=== PATIENT | female | born 1945 | race Caucasian/White ===

== ENCOUNTER 2018-03-31 08:46 | Outpatient (CLI) | payer MEDICARE, OTHER ==
[~2018-03-31] VITALS: Ht 167.6 cm; Wt 55.9 kg
--- NOTE | ~2018-03-31 | EC ---
PATIENT:BASILIA RICCI DATE OF SERVICE: 03/31/18 SEX: F MEDICAL RECORD: [id number] DATE OF : 41 LOCATION:[facility] AGE OF PATIENT: 72 ADMISSION DATE: 03/31/18 REFERRING PHYSICIAN: INTERPRETING PHYSICIAN: CHANELL WOOD MD ECHOCARDIOGRAM REPORT ECHO CHARGES 4 ECHO COMPLETE Date: 03/31 CLINICAL DIAGNOSIS: CHEST PAIN,ANGINA ECHOCARDIOGRAPHIC MEASUREMENTS (adult normal given) AC root (d.<3.7cm) 3.3 cm LV Septum d (<1.2 cm> 1.1 cm Valve Excursion 1.4 cm LV Septum (systole) 1.3 cm Left Atria (s.<4.0cm> 2.9 cm LVPW d(<1.2cm) 1.1 cm RV (d.<2.3cm) 4.8 cm LVPW (sytole) 1.2 cm LV diastole(<5.6CM) 5.0 cm MV E-F(>70mm/sec) cm LV systole 3.5 cm LVOT Diameter 1.8 cm MV exc.(>10mm) 1.9 cm Est.ejection fraction (50-75%) % DOPPLER: LVIT cm/sec A 70.0 cm/sec E 58.0 cm/sec LA cm/sec RVSP 37 mmHg LVOT 87 cm/sec AOP1/2T 907 m/s Asc. Ao 119 cm/sec RVOT 81 cm/sec RA cm/sec PA 86 cm/sec AV Gradient Peak 5.65 mmHg AV Mean 3.01 mmHg AV Area 2.2 cm MV Gradient Peak 3.29 mmHg MV Mean 0.91 mmHg MV Area cm COMMENTS: Reel Stripper: 2 KENAN DOLAN Olive Knocker: 4 Dr. Wood TAPE# pacs Pericardial Effusion N DATE OF SERVICE: PROCEDURE: Transthoracic echocardiogram. FINDINGS: 1. The echocardiogram is of a difficult one to visualize endocardial structures, but overall the left ventricular ejection fraction is normal at 60%. The inflow characteristics are consistent with diastolic dysfunction and there is a suggestion of at least mild concentric left ventricular hypertrophy. 2. The aortic valve is normal. ECHOCARDIOGRAM REPORT [id number] BASILIA RICCI 3. The mitral valve has [id number] mitral regurgitation, eccentric in nature. 4. The tricuspid valve has mild tricuspid regurgitation. RVSP is 37 mmHg. 5. The right ventricle is mildly dilated. 6. The right atrium is mildly dilated. CONCLUSIONS: The patient has normal LV systolic function with evidence of diastolic dysfunction and hypertensive heart disease. TRANSINT:[id number] Voice Confirmation ID: [id number] DOCUMENT ID: [id number] CHANELL WOOD MD at 0841 CC: [id number] DICTATION DATE: 04/05/18 0828 PETROL TANKER DRIVER: 04/05/18 1032 DEP CLI 03/31/18 [id number] [place] [address]
--- NOTE | ~2018-03-31 | HEMODYNAMI ---
PATIENT:BASILIA RICCI MEDICAL RECORD: [id number] : 41 LOCATION:[facility] ADMISSION DATE: 03/31/18 Generatedon:03/31/201811:31 Patient name: BASILIA RICCI Patient #: [id number] SSN: : 1945 Date of study: 03/31/2018 Page: Of Hemodynamic Procedure Report Patient Data Patient Demographics Procedure consent was obtained First Name: BASILIA Gender: Female Last Name: RADHAMES : 1945 Patient #: [id number] Age: 72 year(s) Race: Unknown Additional ID: [id number] Contact details [address]: [address] [place] [address] State: [place] City: [place] Zip code: [address] Past Medical History Allergies Allergen Reaction Date Comments Reported Other allergy 03/31/2018 Codeine Admission Admission Data Admission Date: 03/31/2018 Admission Time: 8:46 Admit Source: Other Procedure Procedure Types Cath Procedure Diagnostic Procedure LHC LHC w/Coronaries Procedure Description Procedure Date Procedure Date: 03/31/2018 Procedure Start Time: 11:18 Procedure End Time: 11:29 Procedure Staff Name Function Venkata Krishna MD Performing Physician Idalmis Draper RT Monitor Jamie Hood RT Scrub Derrell Viveros RN Nurse Procedure Data Cath Procedure Fluoroscopy Diagnostic fluoroscopy Total fluoroscopy Time: 1.5 time: 1.5 min min Diagnostic fluoroscopy Total fluoroscopy dose: 184 dose: 184 mGy mGy Contrast Material Contrast Material Type Amount (ml) Isovue 300 45 Entry Location Entry Primary Successful Side Size Upsize Upsize Entry Closure Succes sful Closure Location (Fr) 1 (Fr) 2 (Fr) Remarks Device Remarks Radial Right 6 Fr Exoseal TR artery Short Estimated blood loss: 10 ml Diagnostic catheters Device Type Used For End Catheter Placement DIAGNOSTIC Lorimor 110cm 5 Procedure Fr catheter ([id number]) Procedure Complications No complications Procedure Medications Medication Administration Route Dosage Oxygen etCO2 Nasal cannula 3 l/min Lidocaine 2% added to field 20 Heparin Flush Bag added to field 2 bags (1000units/500ml NS) 0.9% NaCl I.V. 100 ml/hr Radial Cocktail I.A. 1 syringe (Verapomil 2mg/Nitro 400mcg/Heparin 1500units) Versed I.V. 0.5 mg Fentanyl I.V. 25 mcg Hemodynamics Rest Heart Rate: 54 (bpm) Pressure Samples Time Site Value (mmHg) Purpose Heart Use Rate(bpm) 11:22 LV 182/9,20 EDP 58 Gradients Valve Time Site Site Mean SEP/DFP Peak To Heart Use 1 2 (mmHg) (sec/min) Peak Rate (mmHg) (bpm) Aortic 11:23 LV AO 69 Snapshots Pre Cath Intra NCS Post Cath Vital Signs Time Heart Resp SPO2 etCO2 NIBP (mmHg) Rhythm Pain Sedation Rate (ipm) (%) (mmHg) Status Level (bpm) 10:59:50 58 23 100 0 125/104(116) NSR 0 (11) 10(A) , No pain 11:04:49 55 29 99 0 199/85(115) NSR 0 (11) 10(A) , No pain 11:09:17 55 24 99 0 191/87(111) NSR 0 (11) 10(A) , No pain 11:13:43 56 22 94 0 166/84(109) NSR 0 (11) 10(A) , No pain 11:18:03 55 23 93 0 173/76(102) NSR 0 (11) 9(A) , No pain 11:22:26 56 20 96 0 190/77(152) NSR 0 (11) 9(A) , No pain 11:26:56 57 18 93 0 159/73(104) NSR 0 (11) 10(A) , No pain Medications Time Medication Route Dose Verified Delivered Reason Notes Effectiveness by by 10:58:46 Oxygen etCO2 3 l/min Venkata Buffie used for Nasal Erendira Viveros RN procedure cannula 11:06:47 Lidocaine 2% added 20ml Venkata Venkata for local to vial Erendira Krishna MD anesthetic field 11:06:52 Heparin Flush added 2 bags Venkata Venkata used for Bag to Erendira Krishna MD procedure (1000units/500ml field VASQUEZ NS) 11:07:01 0.9% NaCl I.V. 100 Venkata Buffie Per ml/hr Erendira mcclendon MD 11:09:54 Radial Cocktail I.A. 1 Venkata Venkata for (Verapomil syringe Erendira Krishna MD vasodilation 2mg/Nitro MD 400mcg/Heparin 1500units) 11:16:03 Versed I.V. 0.5 mg Venkata Buffie for sedation Erendira Viveros RN, MD 11:16:09 Fentanyl I.V. 25 mcg Venkata Dove for sedation Erendira Viveros RN, MD Procedure Log Time Note 10:28:02 Informed consent obtained and on chart 10:28:06 Admit Source: Other 10::20 Diagnostic Cath status Elective 10::20 Time tracking: Regular hours (M-F 7:00 - 5:00) 10:28:23 Plan of Care:Hemodynamics will remain stable., Cardiac rhythm will remain stable., Comfort level will be maintained., Respiratory function will remain adequate., Patient/ family verbilizes understanding of procedure., Procedure tolerated without complication., Recovers from procedure without complications.. 10:44:20 Derrell Viveros RN sent for patient. Start room use. 10:51:12 Patient received from Pre/Post Procedure Room to CCL 2 Alert and oriented. Tansferred to table in Supine position. 10:51:14 Warm blankets applied, and pawan hugger turned on for patient comfort. 10:51:14 Correct patient and procedure confirmed by team. 10:51:15 ECG and BP/O2 sat monitors applied to patient. 10:56:59 H&P Date Dictated: 03/28/2018 Within 30 days and on chart., H&P Addendum completed by physician on day of procedure. (MUST COMPLETE FOR ALL OUTPATIENTS). 10:57:01 Pre-procedure instructions explained to patient. 10:57:03 Family in waiting room. 10:57:06 Patient NPO since Midnight. 10:57:28 Patient allergic to Other allergyCodeine 10:57:32 Is the patient allergic to Iodine/contrast media? No. 10:57:53 Vital chart was started 10:57:56 Baseline sample Acquired. 10:57:58 Baseline sample Acquired. 10:58:05 Rhythm: sinus rhythm 10:58:06 Full Disclosure recording started 10:58:14 Snore? Yes 10:58:20 Sleep apnea? No 10:58:26 Airway obstruction? Yes COPD 10:58:43 Is patient on blood thinner?Yes 10:58:46 Oxygen 3 l/min etCO2 Nasal cannula was administered by Derrell Viveros RN; used for procedure; 10:58:47 ACC The patient was administered the following blood thiners within the last 24 hours: ACCPlavix 10:58:49 Patient diabetic? No. 10:58:54 Patient pain scale 0/10 ?. 10:59:02 IV patent on arrival in left forearm with 0.9% NaCl at [facility]. 10:59:56 Right Radial & Right Groin area was prepped with chlora-prep and draped in sterile fashion 10:59:58 Alarms reviewed by R. N. 10:59:59 Sharps counted by scrub and verified by R.N. 11:06:47 Lidocaine 2% 20ml vial added to field was administered by Venkata Krishna MD; for local anesthetic; 11:06:52 Heparin Flush Bag (1000units/500ml NS) 2 bags added to field was administered by Venkata Krishna MD; used for procedure; 11:07:01 0.9% NaCl 100 ml/hr I.V. was administered by Derrell Viveros RN; Per physician; 11:09:54 Radial Cocktail (Verapomil 2mg/Nitro 400mcg/Heparin 1500units) 1 syringe I.A. was administered by Venkata Krishna MD; for vasodilation; 11:10:37 Physician paged 11:15:07 Physician arrived 11:15:08 --------ALL STOP TIME OUT------ 11:16:03 Versed 0.5 mg I.V. was administered by Derrell Viveros RN; for sedation; 11:16:09 Fentanyl 25 mcg I.V. was administered by Derrell Viveros RN; for sedation; 11:17:43 Final Timeout: patient, procedure, and site verified with staff and physician. All members of the team are in agreement. 11:17:45 Right Radial & Right Groin site verified by team. 11:17:49 Physical assessment completed. ASA score P 2 - A patient with mild systemic disease as per Venkata Krishna MD. 11:17:53 Sedation plan: IV Moderate Sedation Medication:Versed, Fentanyl 11:18:00 Use device set Radial Dx or PCI 11:18:08 Procedure started. 11:18:24 Local anesthetic to right radial artery with Lidocaine 2% by Venkata Krishna MD.INITIAL ACCESS ONLY 11:18:29 ACIST Syringe (37558) opened to sterile field. 11:18:30 Medline Cath Pack ([id number]) opened to sterile field. 11:18:32 Bag Decanter (2002) opened to sterile field. 11:18:33 DIAGNOSTIC WIRE .035 260cm J wire (439232) opened to sterile field. 11:18:33 ACIST Hand Control (36407) opened to sterile field. 11:18:34 ACIST Manifold (43377) opened to sterile field. 11:18:37 MBrace Wrist Support ([id number]) opened to sterile field. 11:18:39 NEEDLE Cook 21G 4cm Radial (A02492) opened to sterile field. 11:18:43 SHEATH 6Fr Prelude Radial ([id number]) opened to sterile field. 11:21:08 A 6 Fr Short sheath was inserted into the Right Radial artery 11:21:59 A DIAGNOSTIC Lorimor 110cm 5 Fr catheter ([id number]) was advanced over the wire and used for Procedure. 11:22:28 LV gram done using JOHNSON 11:23:51 RCA angiography performed. 11:24:15 LCA angiography performed. 11:25:41 Catheter removed. 11:26:02 Sheath removed intact; hemostasis achieved with Exoseal to the Right Radial artery. 11:26:49 EF : 65 % 11:26:51 LV hemodynamics recorded. 11:26:56 Procedure ended.(Physican Out) 11:27:07 Fluoroscopy time 01.50 minutes. 11:27:12 Fluoroscopy dose: 184 mGy 11:27:12 Flurop Dose total: 184 11:27:15 Contrast amount:Isovue 300 45ml. 11:27:17 Sharps counted by scrub and verified by R.N. 11:27:20 TR band inflated with 12cc of air. 11:27:22 Insertion/operative site no bleeding no hematoma. 11:27:24 Post Procedure Pulses reassessed and unchanged 11:28:31 Post-procedure physical assessment completed. ASA score P 2 - A patient with mild systemic disease as per Venkata Krishna MD. 11:28:35 Post procedure rhythm: sinus rhythm 11::38 Estimated blood loss: 10 ml 11:28:40 Post procedure instruction explained to patient.Patient verbalizes understanding. 11:28:58 Procedure and supply charges have been captured, reviewed, submitted and are correct. 11:29:21 Procedure Complication : No complications 11:29:25 Vital chart was stopped 11:29:25 See physician's report for complete and final results. 11:29:27 Report given to Pre/Post Procedure Room. 11:29:31 Patient transfered to Pre/Post Procedure Room with Stretcher. 11:29:34 Procedure ended. 11:29:34 Full Disclosure recording stopped 11:29:37 End room use (Document Last) Device Usage Item Name Manufacture Quantity Catalog Number Hospital Part Current M inimal Lot# / Charge Number Stock Stock Serial# Code ACIST Syringe Acist 1 28812 [id number] [id number] 483192 2 0 (70699) Medical [employer] Medline Cath Cardinal 1 [id number] 683879 31749 942568 5 [facility] ([id number]) Bag Decanter Microtek 1 626293 96002 824767 5 () Medical Inc. DIAGNOSTIC WIRE [facility] 1 992558 791351 434211 292630 3 0 .035 260cm J wire (577113) ACIST Hand Acist 1 52940 018457 452294 896320 5 Control (84808) [employer] Inc ACIST Manifold Acist 1 81527 523461 818216 082256 5 (19697) [employer] Systems Inc MBrace Wrist Advanced 1 140-0250-00 510431 88319 429169 5 Support Vascular ([id number]) Dynamics NEEDLE Cook 21G Cook Medical 1 N15194 511476 919832 517173 5 4cm Radial (S30367) SHEATH 6Fr Merit 1 [id number] 064986 735760 750100 5 Prelude Radial Medical ([id number]) DIAGNOSTIC Terumo 1 52-0283 705527 592455 391640 5 Lorimor 110cm 5 Fr catheter (254141) Signature Audit [place] Stage Time Signature Unsigned Intra-Procedure 03/31/2018 Idalmis Draper 11:31:40 AM RT(R) Signatures Monitor : Idalmis Draper Signature : RT Date : Time : [address] [place] [address]
--- NOTE | ~2018-03-31 | OP ---
PATIENT NAME: BASILIA RICCI MEDICAL RECORD: [id number] :41 LOCATION:D.CAT ADMISSION DATE: SURGEON: VENKATA WOOD MD DATE OF OPERATION: 03/31/2018 PROCEDURE: Left heart catheterization, LV gram, coronary angiogram. SALES AGENT TRADING STAMPS: Venkata Wood MD PROCEDURE IN DETAIL: The patient was brought to cardiac catheterization lab in stable condition. The right wrist was sterilely prepped and draped. The patient had a 6-Montserratian sheath placed in right radial artery using modified Seldinger technique. The patient then had catheters utilized to selectively intubate the left coronary artery, the right coronary artery, and the left ventricular cavity respectively. FINDINGS: 1. Left main has mild calcified plaquing. 2. The LAD has a 40% proximal stenosis. It is mildly calcified. 3. The circumflex is a small nondominant vessel with mild plaquing, no significant stenoses. 4. The RCA is a large dominant vessel. Mild calcified plaquing. HEMODYNAMICS: Left ventricular ejection fraction is 65%. End-diastolic pressure is normal. No significant mitral regurgitation. No gradient across the aortic valve. IMPRESSION: Mild diffuse coronary artery disease with preserved LV systolic function. RECOMMENDATIONS: Medical management. TRANSINT:[id number] Voice Confirmation ID: [id number] DOCUMENT ID: [id number] VENKATA WOOD MD at 0841 CC: [id number] DICTATION DATE: 03/31/18 1130 SITE SAFETY MANAGER: 03/31/18 1154 DEP CLI 03/31/18 [id number] [place] [id number]
[2018-03-31] MEDS ORDERED: PRINIVIL20 MG PO (09:08)
[2018-03-31] MEDS ORDERED: TOPROL XL100 MG PO (09:08)
[2018-03-31] MEDS ORDERED: ASPIRIN81 MG PO (09:08)
[2018-03-31] MEDS ORDERED: OMEPRAZOLE20 M1 PO (09:09)
[2018-03-31] MEDS ORDERED: STOOL SOFTENER100 M1 PO (09:09)
[2018-03-31] MEDS ORDERED: CALCIUM 600 +1 EAC3 PO (09:10)
[2018-03-31 09:42] VITALS: BP 202/109; Ht 167.6 cm; Wt 55.9 kg
[2018-03-31 10:01] LABS: CALC OSMOLALITY 281 mosm/kg (275-300); CALCIUM 8.9 mg/dL (8.5-10.1); CARBON DIOXIDE 31.9 mmol/L (21.0-32.0); CHLORIDE - SERUM 104 mmol/L (98-107); CREATININE - SERUM 0.7 mg/dL (0.6-1.3); GLUCOSE 90 mg/dL (74-106); POTASSIUM - SERUM 4.8 mmol/L (3.5-5.1); SODIUM 141 mmol/L (136-145); UREA NITROGEN 16 mg/dL (7-18); eGFR NON AFRICAN AMERICAN 87 mL/min (90-120)
[2018-03-31 10:16] LABS: BASOPHILS 0.9 % (0-2); EOSINOPHILS 5.6 % (0-7); HEMATOCRIT 44.8 % (36.0-48.0); HEMOGLOBIN 15.2 g/dL (12-16); IMMATURE GRANULOCYTES 0.3 % (0-5); LYMPHOCYTES 24.6 % (15-50); MCH 31.6 pg (26.0-34.0); MCHC 33.9 g/dL (31.0-37.0); MCV 93.1 fL (80.0-100.0); MEAN PLATELET VOLUME 11.1 fL (7.4-10.4); MONOCYTES 9.9 % (2-11); NEUTROPHILS 58.7 % (40-80); PLATELET COUNT 193 10x3/uL (130-400); RBC 4.81 10x6/uL (4.00-5.40); RDW 13.7 % (11.5-14.5); WBC 6.8 10x3/uL (4.8-10.8)
== END 2018-03-31 14:30 | disposition home or self-care (01) ==
LOC: D.CATH 08:46
PROVIDERS: Internal Medicine Cardiovascular Disease
DX: R07.9 Chest pain, unspecified (principal); I25.10 Atherosclerotic heart disease of native coronary artery without angina pectoris

== ENCOUNTER → 2019-07-25 12:32 | Outpatient (CLI) | payer MEDICARE, OTHER ==
[2018-03-31 09:42] VITALS: BMI 19.9
--- NOTE | ~2019-07-25 | EC ---
PATIENT:BASILIA RICCI DATE OF SERVICE: 07/25/19 SEX: F MEDICAL RECORD: [id number] DATE OF : 41 [facility] AGE OF PATIENT: 73 ADMISSION DATE: 07/25/19 REFERRING PHYSICIAN: INTERPRETING PHYSICIAN: ESTEFANIA GARCIA MD ECHOCARDIOGRAM REPORT ECHO CHARGES 5 ECHO LIMITED Date: 07/25/19 CLINICAL DIAGNOSIS: HTN, HX OF MR/AI/AFIB/CAD/COPD ECHOCARDIOGRAPHIC MEASUREMENTS (adult normal given) AC root (d.<3.7cm) cm LV Septum d (<1.2 cm> 1.1 cm Valve Excursion cm LV Septum (systole) 1.5 cm Left Atria (s.<4.0cm> 2.7 cm LVPW d(<1.2cm) 1.6 cm RV (d.<2.3cm) 3.9 cm LVPW (sytole) 1.8 cm LV diastole(<5.6CM) 3.9 cm MV E-F(>70mm/sec) cm LV systole 2.4 cm LVOT Diameter 1.4 cm MV exc.(>10mm) cm Est.ejection fraction (50-75%) % DOPPLER: LVIT cm/sec A 72.0 cm/sec E 54.0 cm/sec LA cm/sec RVSP 39 mmHg LVOT 128 cm/sec AOP1/2T 745 m/s Asc. Ao 146 cm/sec RVOT cm/sec RA cm/sec PA cm/sec AV Gradient Peak 8.57 mmHg AV Mean 4.01 mmHg AV Area 1.4 cm MV Gradient Peak 3.20 mmHg MV Mean 1.68 mmHg MV Area cm COMMENTS: Post Closer: 2 KENAN DOLAN Aquatic Habitat Biologist: 3 Dr. Walsh TAPE# PACS Pericardial Effusion N DATE OF SERVICE: Adequate 2D, Color Flow, Spectral Doppler, and M-mode No LVH. LV internal dimension are normal. Wall motion is normal. EF is greater than or equal of 55%. Aortic valve is tricuspid. No evidence of stenosis with Doppler interrogation. Left atrium is normal at 3.7 cm. Mitral valve shows no prolapse. Trivial MR. Right-sided chambers are grossly normal. Trivial TR. ECHOCARDIOGRAM REPORT [id number] BASILIA RICCI TRANSINT:[id number] Voice Confirmation ID: [id number] DOCUMENT ID: [id number] ESTEFANIA GARCIA MD CC: [id number] DICTATION DATE: 07/26/19 1419 HOGSHEAD BUILDER: 07/26/19 1849 DEP CLI 07/25/19 [place] [address] [id number] [place] [id number]
[~2019-07-25 12:32] MED LIST: ASPIRIN81 MG PO; CALCIUM 600 +1 EAC3 PO; OMEPRAZOLE20 M1 PO; PRINIVIL20 MG PO; STOOL SOFTENER100 M1 PO; TOPROL XL100 MG PO
== END | disposition home or self-care (01) ==
LOC: D.HCCECHO 12:32
PROVIDERS: ATTEND Internal Medicine Interventional Cardiology
DX: I10 Essential (primary) hypertension (principal)

== ENCOUNTER → 2020-01-04 08:38 | Outpatient (CLI) | payer MEDICARE, OTHER ==
[2018-03-31 09:42] VITALS: BMI 19.9
== END | disposition home or self-care (01) ==
LOC: D.RAD 08:38 → D.RT 09:30
PROVIDERS: ATTEND Internal Medicine Pulmonary Disease
DX: J44.9 Chronic obstructive pulmonary disease, unspecified (principal)